=== PATIENT | female | born 1995 | race Caucasian/White ===

== ENCOUNTER 2018-12-09 12:27 | Outpatient (CLI) | payer OTHER ==
[2018-12-10] MEDS ORDERED: PREN-1 PO (10:26)
== END 2018-12-09 23:59 | disposition home or self-care (01) ==
LOC: STAR 12:27
PROVIDERS: ATTEND Surgery
DX: Z02.9 Encounter for administrative examinations, unspecified (principal)

== ENCOUNTER 2018-12-19 07:58 | Day surgery (SDC) | payer OTHER ==
[~2018-12-19] VITALS: Ht 160 cm; Wt 73.5 kg
[~2018-12-19 07:58] MED LIST: PREN-1 PO
[2018-12-19 08:17] VITALS: BP 104/64
[2018-12-19] MEDS ORDERED: LACTATED RINGERS 1,000 ML IV SCH (08:21)
[2018-12-19] MEDS ORDERED: BUPIVACAINE/PF-EPI 0.5% 1:200K ONE (08:42)
[2018-12-19] MEDS ORDERED: BUPIVACAINE/PF 0.5% ONE (08:42)
[2018-12-19] MEDS ORDERED: FENTANYL PF 250 MCG/5ML ONE (09:07)
[2018-12-19] MEDS ORDERED: SUGAMMADEX 200 MG/2 ML IVPush ONE (10:00)
[2018-12-19] MEDS ORDERED: GLYCOPYRROLATE 0.2MG/1ML, 5ML ONE (10:36)
[2018-12-19] MEDS ORDERED: ONDANSETRON 2MG/ML, 2ML ONE (10:36)
[2018-12-19] MEDS ORDERED: CEFAZOLIN 1,000 MG ONE (10:36)
[2018-12-19] MEDS ORDERED: PROPOFOL 10 MG/ML, 20ML ONE (10:36)
[2018-12-19] MEDS ORDERED: DEXAMETHASONE 4 MG/ML, 1ML ONE (10:36)
[2018-12-19] MEDS ORDERED: ROCURONIUM 10MG/ML,5ML ONE (10:36)
[2018-12-19] MEDS ORDERED: NEOSTIGMINE 1 MG/ML, 10ML ONE (10:36)
[2018-12-19] MEDS ORDERED: SUCCINYLCHOLINE 20 MG/ML, 10ML ONE (10:36)
[2018-12-19] MEDS ORDERED: FENTANYL PF 100 MCG/2ML ONE ×2 (10:52→11:26)
[2018-12-19] MEDS ORDERED: OXYcodone 5 MG/5 ML ORAL.SOL UDC PO PRN (11:00)
[2018-12-19] MEDS ORDERED: ACETAMINOPHEN 325 MG TABLET PO PRN (11:00)
[2018-12-19] MEDS: FENTANYL PF 100 MCG/2ML IV PRN ×5 (11:00→11:28)
[2018-12-19] MEDS ORDERED: LABETALOL 5MG/ML, 20ML IV PRN (11:00)
[2018-12-19] MEDS ORDERED: HYDROmorphone 2 MG/ML, 1ML IVPush PRN (11:00)
[2018-12-19] MEDS ORDERED: hydrALAzine 20 MG/ML, 1ML IV PRN (11:00)
[2018-12-19] MEDS ORDERED: ALBUTEROL SULFATE 2.5 MG/3 ML NPPB PRN (11:00)
[2018-12-19] MEDS ORDERED: ACETAMINOPHEN 650 MG/20.3 ML UDC ONE (11:16)
[2018-12-19] MEDS ORDERED: OXYcodone 5 MG/5 ML ORAL.SOL UDC ONE (11:17)
[2018-12-19] MEDS ORDERED: morphine SULFATE 10 MG/ML, 1ML ONE (12:29)
[2018-12-19] MEDS ORDERED: MORPHINE SULFATE 4 MG/ML, 1ML IVPush PRN (12:30)
== END 2018-12-19 13:20 | disposition home or self-care (01) ==
LOC: OUT 07:58
PROVIDERS: ATTEND Surgery
DX: O99.612 Diseases of the digestive system complicating pregnancy, second trimester (principal); K80.12 Calculus of gallbladder with acute and chronic cholecystitis without obstruction; K82.8 Other specified diseases of gallbladder; Z3A.27 27 weeks gestation of pregnancy
CPT/HCPCS: 47562; 88304; J0330; J0690; J1100; J2405; J2704; J2710; J3010; J7120

== ENCOUNTER 2019-03-13 11:09 | Inpatient (IN) | payer OTHER ==
[~2019-03-13] VITALS: Ht 160 cm; Wt 83.0 kg
[2019-03-16 07:22] VITALS: BP 143/89
== END 2019-03-16 11:57 | disposition home or self-care (01) | DRG 788 ==
LOC: LDOP 11:09 → LDIP 12:40 → 2NW 03-14 18:08
PROVIDERS: ADMIT Obstetrics & Gynecology; ATTEND Obstetrics & Gynecology
PROC: 10D00Z1 Extraction of Products of Conception, Low, Open Approach (ICD-10-PCS; principal; 2019-03-14)
DX: O13.4 Gestational [pregnancy-induced] hypertension without significant proteinuria, complicating childbirth (principal); O33.9 Maternal care for disproportion, unspecified; O62.1 Secondary uterine inertia; O69.1XX0 Labor and delivery complicated by cord around neck, with compression, not applicable or unspecified; O76 Abnormality in fetal heart rate and rhythm complicating labor and delivery; Z37.0 Single live birth; Z3A.39 39 weeks gestation of pregnancy; N85.8 Other specified noninflammatory disorders of uterus
CPT/HCPCS: 36415; J3490; S0020; 80053; 81003; 82570; 82803; 84156; 84550; 85025; 86850; 86900; 88307; G0378; J0456; J0690; J1170; J1885; J2175; J2405; J2704; J3010; J2590; J7050